=== PATIENT | female | born 1945 | race Caucasian/White ===

== ENCOUNTER → 2019-04-25 | Outpatient (CLI) | payer OTHER, BC ==
--- NOTE | 2019-04-25 11:23 | 2DMMODE ---
[facility] [place] [address] 2 D/M-MODE ECHOCARDIOGRAM Name: RADHA BAIG Room #: REG [facility]#: [id number] Admission: 04/25/19 Attend Phys: Raza Lara MD Discharge: Date of : 41 Report #: [id number] THIS REPORT FOR: //name// APPROVED REPORT Study performed: 04/25/2019 10:18:50 EXAM: Comprehensive 2D, Doppler, and color-flow Echocardiogram Patient Location: Out-Patient Room #: Echo lab 2 Status: routine BSA: 1.77 HR: 66 bpm BP: 126/72 mmHg Rhythm: NSR Other Information Study Quality: Good Indications Pulmonary Hypertension Dyspnea 2D Dimensions RVDd: 33.68 mm IVSd: 11.08 (7-11mm) LVOT Diam: 17.91 (18-24mm) LVDd: 35.70 mm PWd: 10.62 (7-11mm) Ascending Ao: 28.14 (22-36mm) LVDs: 26.08 (25-40mm) Aortic Root: 27.73 mm IVC: 10.00 mm Volumes Left Atrial Volume (Systole) Single Plane 4CH: 71.67 mL Single Plane 2CH: 55.51 mL LA ESV Index: 39.00 mL/m2 Aortic Valve AoV Peak Jose.: 1.14 m/s AO Peak Gr.: 5.16 mmHg LVOT Max P.01 mmHg LVOT Max V: 0.87 m/s [place] Vmax: 1.92 cm2 AI Vmax: 4.09 m/s AI [place]: 2.34 m/s2 AI PHT: 506.64 ms [facility] [address] [place] [address] 2 D/M-MODE ECHOCARDIOGRAM Name: RADHA BAIG Room #: REG [facility]#: [id number] Admission: 04/25/19 Attend Phys: Raza Lara MD Discharge: Date of : 41 Report #: [id number] Mitral Valve E/A Ratio: 0.6 MV Decel. Time: 478.82 ms MV E Max Jose.: 0.37 m/s MV A Jose.: 0.63 m/s MV PHT: 138.86 ms IVRT: 203.00 ms Pulmonary Valve PV Peak Jose.: 0.71 m/s PV Peak Gr.: 2.02 mmHg Pulmonary Vein P Vein S: 0.37 m/s P Vein A: 0.20 m/s P Vein D: 0.31 m/s P Vein A Dur.: 92.3 msec P Vein S/D Ratio: 1.19 Tricuspid Valve TR Peak Jose.: 2.79 m/s TR Peak Gr.: 31.08 mmHg PA Pressure: 36.00 mmHg Left Ventricle The left ventricle is normal size. There is normal LV segmental wall motion. There is normal left ventricular wall thickness. The left ventricular systolic function is normal. The left ventricular ejection fraction is within the normal range. LVEF is >55%. Grade I - abnormal relaxation pattern. Right Ventricle The right ventricle is normal size. The right ventricular systolic function is normal. Atria Left atrium is dilated. Right atrium is dilated. Aortic Valve The aortic valve is normal in structure. Mild aortic regurgitation. There is no aortic valvular stenosis. Mitral Valve The mitral valve is normal in structure. Mild mitral regurgitation. No evidence of mitral valve stenosis. Tricuspid Valve The tricuspid valve is normal in structure. There is mild tricuspid regurgitation. Estimated PAP 36 mmHg. There is mild pulmonary [facility] [address] [place] [address] 2 D/M-MODE ECHOCARDIOGRAM Name: RADHA BAIG Room #: REG [facility]#: [id number] Admission: 04/25/19 Attend Phys: Raza Lara MD Discharge: Date of : 41 Report #: [id number] hypertension. Pulmonic Valve The pulmonary valve is normal in structure. Trace pulmonic regurgitation. Great Vessels The aortic root is normal in size. IVC is normal in size and collapses >50% with inspiration. Pericardium There is no pericardial effusion. <Conclusion> The left ventricle is normal size. There is normal left ventricular wall thickness. The left ventricular systolic function is normal. Grade I - abnormal relaxation pattern. The right ventricle is normal size. Left atrium is dilated. Mild aortic regurgitation. Mild mitral regurgitation. There is mild tricuspid regurgitation. Estimated PAP 36 mmHg. <ELECTRONICALLY SIGNED> By: Rufus Doty MD 04/25/191121 21 21 Rufus Doty MD /INF
== END ==
LOC: CV 04-18 10:34
DX: I08.3 Combined rheumatic disorders of mitral, aortic and tricuspid valves (principal); R06.00 Dyspnea, unspecified; I27.20 Pulmonary hypertension, unspecified

== ENCOUNTER → 2019-10-18 | Outpatient (CLI) | payer OTHER, BC | LOC: CAT 13:53 | PROVIDERS: ATTEND Internal Medicine Rheumatology | DX: J47.9 Bronchiectasis, uncomplicated (principal); I25.10 Atherosclerotic heart disease of native coronary artery without angina pectoris; M34.9 Systemic sclerosis, unspecified; J84.9 Interstitial pulmonary disease, unspecified ==

== ENCOUNTER → 2020-11-19 | Outpatient (CLI) | payer OTHER, BC | LOC: SJCVCIMAG 08:46 | PROVIDERS: ATTEND Internal Medicine | DX: I08.3 Combined rheumatic disorders of mitral, aortic and tricuspid valves (principal); R06.00 Dyspnea, unspecified; M34.9 Systemic sclerosis, unspecified ==